=== PATIENT | male | born 1970 | race African-American/Black ===

== ENCOUNTER 2023-11-02 16:29 | Emergency (ER) | payer SELFPAY ==
[2023-11-02 16:34] VITALS: BP 200/133
[2023-11-02 17:16] VITALS: BP 192/108; BMI 38.1
[2023-11-02] MEDS: ZESTRIL 5 MG PO ×2 (17:45→19:55)
[2023-11-02] MEDS: DELTASONE 50 MG PO (17:46)
[2023-11-02] MEDS: TYLENOL 1000 MG PO (17:46)
[2023-11-02] MEDS: VALIUM 5 MG PO (17:46)
[2023-11-02] MEDS: TORADOL 30 MG IM (17:48)
[2023-11-02 18:00] VITALS: BP 182/132
[2023-11-02 18:01] LABS: Urine Albumin 2+ (Neg - Trace); Urine Bilirubin 1+ (Negative); Urine Character Clear (Clear); Urine Color Yellow; Urine Glucose Negative (Negative); Urine Ketone Trace (Negative); Urine Leukocyte Negative (Negative); Urine Nitrite Negative (Negative); Urine Occult Blood Negative (Negative); Urine Specific Gravity 1.025 (<1.030); Urine Urobilinogen Negative (Neg - 1+)
--- NOTE | 2023-11-02 18:11 | ED.GENMED ---
History of Present Illness
General
Chief Complaint: Blood Pressure Problem
Source: patient and family
Exam Limitations: none
Time Seen by Provider: 11/02/23 17:02
Nursing documentation reviewed up to this point in time: agreed with
Travel History
Have you had any contact with someone who has COVID-19?: No
Do you have any symptoms of coronavirus? Fever > 100 degrees, chills, cough, shortness of breath, sore throat, loss of taste or smell, muscle aches, or headache?: No
History of Present Illness
History of Present Illness:
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 He is
presenting to the emergency department today with concerns of left-sided low back discomfort rating down his left leg over the past 4 weeks or so. Denies any bowel or bladder dysfunction denies any numbness or weakness has been able to ambulate
well no chest pain shortness of breath or abdominal pain. No fevers. No history of immunosuppression.
Review of Systems
Review of Systems
Allergies reviewed?: Yes
All Other Systems: ROS reviewed and negative except as documented in HPI and ROS
Phy Exam
Physical Exam
Physical Exam:
GENERAL: Alert , in no apparent distress
EYE: pupils equal and reactive
NECK: Supple, no significant adenopathy.
ENT: o/p clr, mmm.
CARDIAC: Regular rate and rhythm .
LUNGS: Clear breath sounds bilaterally, no acute respiratory distress, no wheezes/rales/rhonchi
ABDOMEN: Soft, without focal tenderness, no r/g, no cvat
NEUROLOGICAL: Alert and oriented, no focal neuro deficits 5-5 lower extremity strength normal sensation when palpating bilaterally
SKIN: Warm and dry, skin intact.
MUSCULOSKELETAL: No edema, well perfused.
PSYCH: Normal and appropriate interaction.
Course
Orders/Labs/Results
Orders:
Orders
11/02/23 16:42
EKG [Electrocardiogram (*1)] Stat
Reason for Study: Hypertension, Benign
EKG- Treatment ONCE
11/02/23 17:37
Acetaminophen [Tylenol] 1,000 mg PO NOW STA
Diazepam [Valium] 5 mg PO NOW STA
Ketorolac [Toradol] 30 mg IM NOW STA
Lisinopril [Zestril] 5 mg PO NOW STA
Prednisone [Deltasone] 50 mg PO NOW STA
11/02/23 17:43
Lumbar Spine, 2 or 3 View [CR Lumbar Spine 2 Or 3 Views] Urgent
Comment:
Reason For Exam: low back pain
11/02/23 17:54
Urinalysis Reflex To Culture Urgent
Date Specimen was Collected: 11/02/23
Time Specimen was Collected: 17:53
Urine Microscopic Reflex Cult Urgent
Urine Culture Urgent
[place] Source: U
Specimen Description:
Date Specimen was Collected: 11/02/23
Time Specimen was Collected: 17:53
11/02/23 19:36
Lisinopril [Zestril] 5 mg PO NOW STA
11/02/23 19:39
HydrALAZINE [Apresoline] 10 mg IV NOW STA
Lisinopril [Zestril] 10 mg PO NOW STA
11/02/23 19:55
BMP [Basic Metabolic Panel] Urgent
CBC/With Diff [Complete Blood Count/With Diff] Urgent
Abnormal Lab Results
11/02/23 11/02/23
17:54 19:55
RBC 4.25 L 10^6/uL
(4.70-6.10)
MCV 94.4 H fL
(80.0-94.0)
MCH 32.9 H pg
(27.0-31.0)
Calcium 10.3 H mg/dl
(8.4-10.2)
Urine Ketones Trace A
(Negative)
Urine Bilirubin 1+ A
(Negative)
Urine Bacteria (Reflex) Moderate A
(Negative)
Urine Albumin (Reflex) 2+ A
(Neg - Trace)
11/02/23 19:55
11/02/23 19:55
Vital Signs
Initial and Last Documented VS:
Initial Vital Signs
Temp Pulse Resp BP Pulse Ox
98.9 F 96 18 200/133 98
11/02/23 16:34 11/02/23 16:34 11/02/23 16:34 11/02/23 16:34 11/02/23 16:34
Last Documented Vital Signs
Temp Pulse Resp BP Pulse Ox
98.9 F 74 18 172/100 99
11/02/23 16:34 11/02/23 19:57 11/02/23 16:34 11/02/23 20:03 11/02/23 17:17
MDM/Problems Addressed
MDM/Problems Addressed:
53-year-old male presenting to the emergency department today with concerns of left-sided low back and buttock discomfort rating down his left leg over the past few weeks. On arrival blood pressure is elevated he does have a history of high blood
pressure has not been taking his medications. EKG performed that did not show any emergent findings urinalysis without emergent findings as well. Patient with normal neurologic evaluation of lower extremities. No bowel or bladder dysfunction. No
symptoms consistent with spinal epidural abscess or cauda equina. Blood pressure remained elevated during ER stay patient without any specific symptoms consistent with hypertensive emergency. He was given additional lisinopril as he was on this
previously. Additionally given a small dose of hydralazine to improve blood pressure especially the diastolic which was elevated to the 130s prior to discharge. He claims that his back pain has significantly improved after receiving medications
here otherwise will follow-up closely with the primary care doctor in the next week or so return precautions were given.
*Critical Care Note
Total Time (30-74mins, 75-104mins- exclusive of procedures): Not Applicable
ED Attending Note
-
Portions of this chart may have been created with voice recognition software.� Occasional wrong word or��sound alike� substitutions may have occurred due to the inherent limitations of voice recognition software.
Discharge Plan
Departure
Patient Disposition: Home (Routine Discharge)
Date of Disposition: 11/02/23
Time of Disposition: 20:39
Patient with high blood pressure during this ER visit?: Yes
Condition: Good
Covid-19: Not Applicable
Discharge Problem:
BP (high blood pressure), Back pain
Instructions: Back Pain, BLOOD PRESSURE
Prescriptions:
New
tizanidine [Zanaflex] 4 mg capsule
4 mg PO BID PRN (Reason: muscle spasticity) Qty: 7 0RF
ibuprofen 600 mg tablet
600 mg PO Q8H PRN (Reason: Pain) Qty: 14 0RF
lisinopril 20 mg tablet
20 mg PO DAILY 21 Days Qty: 21 0RF
Referrals:
Tina Curry CRNP [Family Provider] -
Activity Restrictions/Additional Instructions:
You came to emergency department today with concerns of back discomfort. Here you had improving symptoms after treatment. Please take tizanidine as needed to help with muscle tightness. This can cause drowsiness please do not drive or operate
machinery while taking this medication. He can also take ibuprofen 6 or milligrams every 6 hours for discomfort. Please also take lisinopril 20 mg once daily for your elevated blood pressure and follow-up closely with the primary care doctor
within 1 to 2 weeks to be reassessed and monitor. Return to the emergency department for any worsening, new or concerning symptoms.
Interventions
Interventions:
*General Assessment Last Done: 11/02/23 16:34
*Neglect/Abuse Screening Last Done: 11/02/23 17:33
ED- Fall Risk Assessment Last Done: 11/02/23 17:17
*ED COVID-19 Vaccine History Last Done: 11/02/23 16:34
ED- Cardiac Assessment Last Done: 11/02/23 17:17
ED- Neurological Assessment Last Done: 11/02/23 17:17
ED- Pulmonary Assessment Last Done: 11/02/23 17:17
Discharge Date and Time
Print Language: UZBEK
[2023-11-02 18:15] LABS: Urine Mucus Moderate
[2023-11-02 18:17] LABS: Urine Bacteria Moderate (Negative); Urine Red Blood Cell 0-2 /HPF (0-2)
[2023-11-02 19:46] VITALS: BP 170/110
[2023-11-02] MEDS: ZESTRIL 10 MG PO (19:56)
[2023-11-02] MEDS: APRESOLINE 10 MG IV (19:57)
[2023-11-02 20:03] VITALS: BP 172/100
[2023-11-02 20:05] LABS: % Basophils 1.4 % (0-2); % Eosinophils 0.3 % (0-6); % Immature Granulocytes 0.2 % (0-0.5); % Lymphocytes 29.1 % (20.5-51.1); % Monocytes 4.8 % (1.7-9.3); % Neutrophils 64.2 % (42.2-75.2); Absolute Basophils 0.1 10^3/uL (0-0.2); Absolute Lymphocytes 1.9 10^3/uL (1.2-3.4); Absolute Monocytes 0.3 10^3/uL (0.1-0.6); Absolute Neutrophils 4.1 10^3/uL (1.4-6.5); Hematocrit 40.1 % (39.0-52.0); Mean Corp Hgb Conc. 34.9 g/dL (33.0-37.0); Mean Corpuscular Hgb 32.9 pg (27.0-31.0); Mean Corpuscular Volume 94.4 fL (80.0-94.0); Mean Platelet Volume 9.6 fL (7.4-10.4); Nucleated Red Blood Cells % 0 % (-); Platelet Count 379 10^3/uL (130-400); Red Blood Cell Count 4.25 10^6/uL (4.70-6.10); Red Cell Dist. Width 12.9 % (11.5-14.5); White Blood Cell Count 6.5 10^3/uL (4.8-10.8)
[2023-11-02 20:25] LABS: Blood Urea Nitrogen 20 mg/dl (9-20); Calcium 10.3 mg/dl (8.4-10.2); Carbon Dioxide 29 mmol/L (22-30); Chloride 99 mmol/L (98-107); Estimated Creatinine Clearance 81 ml/min; Glucose 91 mg/dl (70-99); Potassium 4.5 mmol/L (3.5-5.1); Sodium 136 mmol/L (135-145); eGFR > 60.00
[2023-11-02 20:35] VITALS: BP 171/99
== END 2023-11-02 21:15 | disposition home or self-care (01) ==
LOC: EMR 16:29
PROVIDERS: Physician Assistant; EMERGENCY PHYSICIAN Emergency Medicine; FAMILY PHYSICIAN Nurse Practitioner; REFERRING PHYSICIAN Internal Medicine
DX: R03.0 Elevated blood-pressure reading, without diagnosis of hypertension (principal); M54.9 Dorsalgia, unspecified; I10 Essential (primary) hypertension; Z90.81 Acquired absence of spleen
CPT/HCPCS: 99283; 96374; 96372; 72100; 80048; 81003; 81015; 85025; 87086; 93005

== ENCOUNTER 2024-03-22 11:39 | Emergency (ER) | payer OTHER, SELFPAY ==
[2024-03-22 11:40] VITALS: BP 170/100
--- NOTE | 2024-03-22 12:06 | ED.GENMED ---
History of Present Illness
General
Chief Complaint: Back Pain
Time Seen by Provider: 03/22/24 11:56
History of Present Illness
History of Present Illness:
54-year-old male presents the emergency department for evaluation of intractable left-sided low back pain rating down the left leg. Pains been present for greater than 6 months. He was previously seen his emergency department earlier this spring
and treated supportively with mild improvement. He also was prescribed steroids last month by his primary care physician felt as though this may have helped. He has not had any outpatient advanced imaging, only an x-ray. Denies any loss of
bladder function
Review of Systems
Review of Systems
Allergies reviewed?: Yes
All Other Systems: ROS reviewed and negative except as documented in HPI and ROS
Phy Exam
Physical Exam
Physical Exam:
GEN: Well appearing, NAD, WDWN
HEENT: Oral mucosa moist, no scleral icterus
Cardiac: Regular rate
Lung: No respiratory distress, no tachypnea
MSK: No gross deformity or injuries. No midline lumbar spine tenderness. Reproducible tenderness to the left superior gluteal region. Bilateral lower extremity strength 5/5 in all salas. 2+ patellar reflexes
Skin: Good color, no pallor or jaundice, no rashes
Neuro: AO x3, moves all extremities freely
Psych: Calm, cooperative
Course
Orders/Labs/Results
Orders:
Orders
03/22/24 12:19
Ketorolac [Toradol] 30 mg IM NOW STA
03/22/24 12:48
Oxycodone [Roxicodone] 5 mg PO NOW STA
Vital Signs
Initial and Last Documented VS:
Initial Vital Signs
Temp Pulse Resp BP Pulse Ox
98.0 F 110 18 170/100 98
03/22/24 11:40 03/22/24 11:40 03/22/24 11:40 03/22/24 11:40 03/22/24 11:40
Last Documented Vital Signs
Temp Pulse Resp BP Pulse Ox
98.0 F 88 18 168/88 95
03/22/24 11:40 03/22/24 13:33 03/22/24 13:33 03/22/24 13:33 03/22/24 13:33
MDM/Problems Addressed
MDM/Problems Addressed:
Patient seen for the time of discharge. Likely acute lumbar disc herniation. Recommend outpatient follow-up with primary care for MRI and pain/spine follow-up, we will treat him with a course of tapering steroids
*Critical Care Note
Total Time (30-74mins, 75-104mins- exclusive of procedures): Not Applicable
ED Attending Note
-
Portions of this chart may have been created with voice recognition software.� Occasional wrong word or��sound alike� substitutions may have occurred due to the inherent limitations of voice recognition software.
Discharge Plan
Departure
Patient Disposition: Home (Routine Discharge)
Date of Disposition: 03/22/24
Time of Disposition: 12:19
Patient with high blood pressure during this ER visit?: No
Discharge Problem:
Acute lumbar radiculopathy
Instructions: Radiculopathy (DC)
Prescriptions:
New
prednisone 10 mg tablet
10 mg PO DIRECTED Qty: 43 0RF
Rx Instructions:
Once daily as follows: 60, 60, 50, 50, 40, 40, 30, 30, 20, 20, 10, 10, 5, 5
No Action
tizanidine [Zanaflex] 4 mg capsule
4 mg PO BID PRN (Reason: muscle spasticity) Qty: 7 0RF
ibuprofen 600 mg tablet
600 mg PO Q8H PRN (Reason: Pain) Qty: 14 0RF
lisinopril 20 mg tablet
20 mg PO DAILY 21 Days Qty: 21 0RF
Referrals:
Isac Pierce MD [Active] -
Activity Restrictions/Additional Instructions:
Contact [facility], as you will need an MRI of your lower spine
You should also attempt to follow up with a pain and management specialist for further evaluation
Do not take ibuprofen/naproxen until steroids are done
Interventions
Interventions:
*Risk Screen - Suicide Last Done: 03/22/24 11:40
*Neglect/Abuse Screening Last Done: 03/22/24 11:40
*Nursing Disposition Last Done: 03/22/24 13:34
ED-Musculoskeletal Assessment Last Done: 03/22/24 12:30
Discharge Date and Time
Discharge Date/Time: 03/22/24 13:35
Print Language: SETSWANA
[2024-03-22] MEDS: TORADOL 30 MG IM (12:36)
[2024-03-22] MEDS: ROXICODONE 5 MG PO (12:53)
[2024-03-22 13:33] VITALS: BP 168/88
== END 2024-03-22 13:35 | disposition home or self-care (01) ==
LOC: EMR 11:39
PROVIDERS: EMERGENCY PHYSICIAN Emergency Medicine; FAMILY PHYSICIAN Internal Medicine
DX: M54.16 Radiculopathy, lumbar region (principal)
CPT/HCPCS: 99282; 96372

== ENCOUNTER 2024-04-07 18:34 | Emergency (ER) | payer OTHER, SELFPAY ==
[2024-04-07 18:39] VITALS: BMI 34.4
[2024-04-07 18:40] VITALS: BP 163/92
[2024-04-07] MEDS: PERCOCET 5/325 2 TABLET PO (20:06)
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
[2024-04-07] MEDS: DILAUDID 1 MG IV (21:09)
[2024-04-07] MEDS: ATIVAN 1 MG IV (21:12)
== END 2024-04-07 23:37 | disposition home or self-care (01) ==
LOC: EMR 18:34
PROVIDERS: EMERGENCY PHYSICIAN Emergency Medicine; FAMILY PHYSICIAN Internal Medicine
DX: G89.18 Other acute postprocedural pain (principal); M54.9 Dorsalgia, unspecified; I10 Essential (primary) hypertension; Z98.84 Bariatric surgery status; Z90.49 Acquired absence of other specified parts of digestive tract; Z90.81 Acquired absence of spleen; Z98.890 Other specified postprocedural states
CPT/HCPCS: 96374; 96375; 99284; 72148; 93005

== ENCOUNTER 2024-04-12 18:44 | Emergency (ER) | payer OTHER, SELFPAY ==
[2024-04-12 18:58] VITALS: BP 161/101
== END 2024-04-12 21:28 ==
LOC: EMR 18:44
PROVIDERS: EMERGENCY PHYSICIAN Emergency Medicine
DX: K21.9 Gastro-esophageal reflux disease without esophagitis (principal); Z98.890 Other specified postprocedural states; R20.0 Anesthesia of skin; R00.0 Tachycardia, unspecified
CPT/HCPCS: 93005

== ENCOUNTER 2025-02-02 18:00 | Emergency (ER) | payer MEDICAID, OTHER, SELFPAY ==
[2025-02-02] VITALS (7 sets, daily range): BP systolic 129–146; BP diastolic 62–96; BMI 28.3
[2025-02-02 18:26] LABS: Hematocrit 33.9 % (39.0-52.0); Hemoglobin 12.1 g/dL (13.0-18.0); Mean Corp Hgb Conc. 35.7 g/dL (33.0-37.0); Mean Corpuscular Volume 92.9 fL (80.0-94.0); Nucleated Red Blood Cells % 0 % (-); Platelet Count 431 10^3/uL (130-400); Red Cell Dist. Width 12.9 % (11.5-14.5)
[2025-02-02 18:48] LABS: ALT (SGPT) 66 U/L (0-50); AST (SGOT) 68 U/L (17-59); Albumin 4.4 g/dl (3.5-5.0); Alkaline Phosphatase 76 U/L (38-126); Blood Urea Nitrogen 35 mg/dl (9-20); Calcium 10.1 mg/dl (8.4-10.2); Carbon Dioxide 28 mmol/L (22-30); Chloride 104 mmol/L (98-107); Glucose 97 mg/dl (70-99); Lipase 32 U/L (23-300); Potassium 4.1 mmol/L (3.5-5.1); Sodium 139 mmol/L (135-145); Total Protein 7.6 g/dl (6.3-8.2); eGFR > 60.00
--- NOTE | 2025-02-02 19:33 | ED.GENMED ---
History of Present Illness
General
Chief Complaint: Abdominal Pain
Source: patient
Exam Limitations: none
Time Seen by Provider: 02/02/25 19:19
Nursing documentation reviewed up to this point in time: agreed with
History of Present Illness
History of Present Illness:
Note:
CHIEF COMPLAINT(S)
Abdominal pain and nausea post-operative from Malachi-en-Y gastric bypass surgery.
HISTORY OF PRESENT ILLNESS
The patient is a 55-year-old male who underwent a Malachi-en-Y gastric bypass surgery a week ago. He was discharged from the hospital on Friday and began experiencing symptoms less than 24 hours later. The patient reports nausea and a feeling of
abdominal distension, but denies any vomiting. He is experiencing diarrhea with large watery stools and feels weak and faint, which may suggest anemia due to potential blood loss. The patient expressed concerns about not consuming adequate
nutrition. He mentioned a product called 'liquid cell' for protein intake, which was not available at the emergency department. The patient reports a significant reduction in oral intake since the surgery due to these symptoms.
The patient has not taken any medications today, particularly pain medications, despite previous usage for postoperative pain management.
PAST MEDICAL AND SURIGICAL HISTORY
The patient had Malachi-en-Y gastric bypass surgery performed last week.
SOCIAL HISTORY
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 The patients daughter was mentioned to be present over the phone during the conversation.
PHYSICAL EXAM
- General: Alert, appears fatigued, and in mild distress. No acute distress observed.
- Skin: Warm, dry. No visible signs of trauma, though the patient did mention areas that are black and blue due to surgical procedures.
- Head: Normocephalic, atraumatic.
- Neck: Supple, trachea midline.
- Eyes, Ears, Nose, Mouth and Throat: Oral mucosa moist.
- Cardiovascular: Normal peripheral perfusion, no edema observed.
- Respiratory: Respirations are non-labored.
- Gastrointestinal: Abdomen slightly distended, reported discomfort upon palpation. No bowel sounds were detected during the brief physical examination.
- Back: Normal range of motion, normal alignment.
- Musculoskeletal: Normal range of motion, normal strength.
- Neurological: Alert and oriented to person, place, time, and situation. No focal neurological deficit observed.
- Psychiatric: Cooperative, appropriate mood and affect.
PROBLEM LIST
- Acute: Abdominal pain and diarrhea post Malachi-en-Y gastric bypass surgery; Possible anemia
- Chronic: None mentioned
PLAN
1. Conduct laboratory work to assess anemia and possible nutritional deficiencies.
2. Perform a computed tomography (CT) scan to evaluate abdominal discomfort and ensure there are no postoperative complications.
3. Conduct a rectal examination to evaluate for any internal bleeding or other abnormalities.
4. Arrange stool samples for analysis to assess the cause of diarrhea.
5. Administer intravenous fluids to ensure proper hydration given the patients symptoms and potential lack of adequate oral intake.
6. Reassure the patient regarding stabilization at the current facility before considering transfer to another hospital if necessary.
DIFFERENTIAL DIAGNOSIS
The Differential Diagnosis includes, in no particular order and is not limited to:
1. Gastrointestinal bleeding post-surgery
2. Anastomotic leak
3. Dumping syndrome
4. Dehydration
5. Obstructive bowel disease
6. Post-surgical ileus
7. Infection
8. Nutritional deficiency
9. Small bowel obstruction
10. Medication side effects
CARE-UPDATE
02/02/25 - 20:04
The patient expressed discomfort and was advised not to exert themselves. Lab work and a cast imaging are pending to determine the underlying issue.
CARE-UPDATE
02/02/25 - 20:26
The patient appears to be experiencing some cognitive difficulties, potentially affecting memory and comprehension, which may warrant further evaluation. No specific updates regarding the patients blood work or current treatment plan were discussed
in the conversation. Additional follow-up is advised to address concerns raised about the patients cognitive state and ensure accurate understanding and management of their health status.
CARE-UPDATE
02/02/25 - 23:18
Patient has not provided a stool sample yet, which remains essential due to concerns about black stools, potentially indicative of gastrointestinal bleeding. Imaging results are normal. Plan includes encouraging the patient to produce a stool sample
for further evaluation. Awaiting dietary request fulfillment as the patient may help facilitate sample collection.
Disposition:
SUMMARY OF ENCOUNTER
The patient, a 55-year-old male who recently underwent Malachi-en-Y gastric bypass surgery a week ago, presented to the emergency department with abdominal pain and reported black stools, as documented in a photo. A rectal exam initially failed to
produce a stool sample, but a subsequent attempt provided a small sample that tested chemically negative for blood. Despite being symptomatic and potentially dehydrated, the patient insisted on being discharged and expressed a desire to follow up
with [facility]. He has been able to drink fluids without issue after receiving almost a liter of intravenous fluids.
DISPOSITION
Discharge.
ASSESSMENT
The patient is recovering from Malachi-en-Y gastric bypass surgery and presents with symptoms suggestive of dehydration, but is now successfully hydrating on his own. Other potential complications, such as gastrointestinal bleeding, were not evident
upon testing. The patient exhibited elevated transaminases, a normal white blood cell count, and normal H&H levels.
PLAN
The patient is to continue hydrating orally, follow [facility] with [facility] for [facility] care, and monitor for any signs of complications such as infection or persistent stool changes.
INDEPENDENT REVIEW OF LABS AND INTERPRETATION OF TESTS
- My independent review of BUN is 35.
- My independent review of creatinine is 1.3.
- My independent review of transaminases indicates they are slightly elevated.
- My independent review of the white blood cell count is normal.
- My independent review of hemoglobin and hematocrit (H&H) shows they are roughly within normal limits.
PATIENT EDUCATION AND COUNSELING
The patient and his were informed about the current state of his recovery post-surgery and reassured regarding hydration and monitoring for signs of complications. They agreed with the discharge plan and follow-up strategies.
FOLLOW-UP INSTRUCTIONS
The patient was advised to follow [facility] with [facility] for continued care.
MEDICAL DECISION MAKING
- Number and Complexity of Problems Addressed: Chronic conditions affecting care include post-operative recovery from recent Malachi-en-Y gastric bypass surgery. Differential Diagnosis: gastrointestinal bleeding post-surgery, anastomotic leak, dumping
syndrome, dehydration, obstructive bowel disease, post-surgical ileus, infection, nutritional deficiency, small bowel obstruction, medication side effects.
- Data:
- Category 1: Tests and documents reviewed include BUN, creatinine, transaminases, white blood cell count, hemoglobin and hematocrit, with CT scan of abdomen and pelvis, as well as the head.
- Category 2: Input from patient�s was noted in the decision to discharge and follow up.
- Risk: Prescription medication was considered but ultimately not given based on patient�s condition improving with hydration. Care was also influenced by patient�s social determinants, selecting [place] services for ongoing management.
DIAGNOSIS
- Dehydration post-surgery (ICD-10: E86.0)
- Elevated liver enzymes post-surgery (ICD-10: R74.01)
Past History
Past History
ED Past Medical History: HTN
ED Past Surgical History: Other (Gastric sleeve, appendectomy, splenectomy)
Phy Exam
General Physical Exam
General Presentation: well appearing and mild distress
General age: appears stated age
General Skin: warm and dry
General Habitus: normal
General Mental: alert
General Hydration: appears well hydrated
ENT Exam
ENT Exam: EOMI, pharynx normal, neck supple and normocephalic
Eye Exam
Eye Exam: PERRL, cornea clear and conjunctiva normal
Cardiovascular Exam
Cardiovascular Exam: regular rate/rhythm, no edema, no murmur and normal peripheral pulses
Pulmonary Exam
Pulmonary Exam: lungs clear, no respiratory distress, no rales, no crackles, no rhonchi, no stridor, no wheezing and no cough
Gastrointestinal Exam
Gastrointestinal Exam: normal bowel sounds, soft, no organomegaly, no pulsatile mass and non distended
Palpation: generalized: Mild tenderness
Neurological Exam
Neurological Exam: alert, oriented x3, no motor deficits and speech normal
Musculoskeletal Exam
Musculoskeletal Exam: full ROM and no edema
Skin Exam
Skin Exam: normal color, warm/dry, no rash and no petechia
Psychiatric Exam
Psychiatric Exam: normal mood/affect
Course
Orders/Labs/Results
Orders:
Orders
02/02/25 18:18
Type And Crossmatch [Type+Screen] Urgent
Complete Blood Count/With Diff Urgent
Comprehensive Metabolic Panel Urgent
Lipase Urgent
02/02/25 19:31
ABO2 Urgent
BBK Wristband Number:
Associate notified that ABO2 has been ordered: [id number]
Date: 02/02/25
Time: 18:41
[employer] Attendant ID: [id number]
02/02/25 19:33
CT Abd/Pel (IV only)-DH only Urgent
Comment:
Reason For Exam: 1 week s/p Gastric bypass, dark tarry stools
02/02/25 20:16
Morphine Sulfate 4 mg IV NOW STA
Ondansetron Injectable [Zofran] 4 mg IV NOW STA
02/02/25 20:30
0.9% Sodium Chloride 1000 ml [Nss] 1,000 ml IV 250 mls/hr
02/02/25 21:15
CT Head W/o Iv Contrast Urgent
Comment:
Reason For Exam: confusion
Abnormal Lab Results
02/02/25
18:18
RBC 3.65 L 10^6/uL
(4.70-6.10)
Hgb 12.1 L g/dL
(13.0-18.0)
Hct 33.9 L %
(39.0-52.0)
MCH 33.2 H pg
(27.0-31.0)
Plt Count 431 H 10^3/uL
(130-400)
Absolute Monos (auto) 0.9 H 10^3/uL
(0.1-0.6)
Monocytes % 12.4 H %
(1.7-9.3)
BUN 35 H mg/dl
(9-20)
AST 68 H U/L
(17-59)
ALT 66 H U/L
(0-50)
02/02/25 18:18
02/02/25 18:18
Vital Signs
Initial and Last Documented VS:
Initial Vital Signs
Temp Pulse Resp BP Pulse Ox
99.8 F 97 18 141/96 100
02/02/25 18:04 02/02/25 18:04 02/02/25 18:04 02/02/25 18:04 02/02/25 18:04
Last Documented Vital Signs
Temp Pulse Resp BP Pulse Ox
99.8 F 97 18 146/62 98
02/02/25 18:04 02/02/25 18:04 02/02/25 18:04 02/02/25 23:00 02/02/25 23:00
*Pulse Oximetry
SaO2: 100
Oxygen Mode of Delivery: Room air
Patient hypoxic: no
*Critical Care Note
Total Time (30-74mins, 75-104mins- exclusive of procedures): Not Applicable
ED Attending Note
-
Portions of this chart may have been created with voice recognition software.� Occasional wrong word or��sound alike� substitutions may have occurred due to the inherent limitations of voice recognition software.
Discharge Plan
Departure
Patient Disposition: Home (Routine Discharge)
Date of Disposition: 02/02/25
Time of Disposition: 23:35
Patient with high blood pressure during this ER visit?: Yes
Discharge Problem:
Postoperative abdominal pain
Instructions: Abdominal Pain, BLOOD PRESSURE
Prescriptions:
No Action
tizanidine [Zanaflex] 4 mg capsule
4 mg PO BID PRN (Reason: muscle spasticity) Qty: 7 0RF
ibuprofen 600 mg tablet
600 mg PO Q8H PRN (Reason: Pain) Qty: 14 0RF
lisinopril 20 mg tablet
20 mg PO DAILY 21 Days Qty: 21 0RF
prednisone 10 mg tablet
10 mg PO DIRECTED Qty: 43 0RF
Rx Instructions:
Once daily as follows: 60, 60, 50, 50, 40, 40, 30, 30, 20, 20, 10, 10, 5, 5
Referrals:
UNKNOWN - PT DOES,NOT KNOW [Family Provider]
Activity Restrictions/Additional Instructions:
Please follow-up with the [facility] for your normal postoperative care. Return to the emergency department with any changing or of symptoms.
Thank You for choosing [facility].
It was a pleasure meeting you and taking part in your care. We hope for your continued healing and wellness.
Please read discharge instructions in their entirety. However, they are for general education and may not describe your exact diagnosis at discharge. Information on your ER visit and medical conditions were discussed with you along with appropriate
follow up information...
If indicated, please take your medications as instructed and indicated on discharge paperwork.
Please schedule a follow up appointment as directed. Call to schedule an appointment
Please return to the emergency department with ANY change in, persisting, or worsening of symptoms. If any of your symptoms do not improve, or persist, or become more severe within 6-12 hours, please return to the emergency department for further
care.
Please return to the emergency department if you develop a headache, neck pain/stiffness, fever greater than 100.4F, chest pain, shortness of breath, persistent nausea, vomiting, slurred speech, difficulty walking, numbness/tingling, weakness, signs
of infection or any other symptoms that are worrisome to you.
If you have any questions or concerns please do not hesitate to call the Hospital at or E-mail me directly at [email or web address]
Interventions
Interventions:
*Risk Screen - Suicide Last Done: 02/02/25 18:04
*General Assessment Last Done: 02/02/25 23:41
*Neglect/Abuse Screening Last Done: 02/02/25 23:41
*ED- Fall Risk Assessment Last Done: 02/02/25 23:41
*ED COVID-19 Vaccine History Last Done: 02/02/25 23:41
*Nursing Disposition Last Done: 02/02/25 23:41
IO-Asfuwh-Nkqhnulcur Assessment Last Done: 02/02/25 20:13
Discharge Date and Time
Discharge Date/Time: 02/02/25 23:42
Print Language: FRENCH
[2025-02-02] MEDS: MORPHINE SULFATE 4 MG IV (20:24)
[2025-02-02] MEDS: ZOFRAN 4 MG IV (20:25)
[2025-02-02] MEDS: NSS 1000 IV (20:26)
== END 2025-02-02 23:42 | disposition home or self-care (01) ==
LOC: EMR 18:00
PROVIDERS: Emergency Medicine; EMERGENCY PHYSICIAN Student in an Organized Health Care Education/Training Program
DX: G89.18 Other acute postprocedural pain (principal); R10.9 Unspecified abdominal pain; R11.0 Nausea; I10 Essential (primary) hypertension; Z90.49 Acquired absence of other specified parts of digestive tract; Z98.84 Bariatric surgery status
CPT/HCPCS: 99284; 96374; 96375; 70450; 74177; 80053; 83690; 85025; 86850; 86900; 86901; Q9967